=== PATIENT | female | born 1950 ===

== ENCOUNTER 2017-11-21 13:24 | Emergency (ER) | payer MEDICARE ==
[2017-11-21 13:41] VITALS: BP 178/86
--- NOTE | 2017-11-21 13:43 | UC ---
Throat Pain/Nasal Hima HPI - HPI Summary HPI Summary: 67 y/o female presents to the urgent care c/o sore throat since yesterday. Pt was with her grand children over the weekend and one of them Dx w/ strep. She wants to make sure she doesn't have strep. Pain w/ swallowing is 8/10 associated w/ mild nasal congestion and clear nasal discharge. She has not taking anything to alleviate symptoms. Pt denies fever, cough, ROMERO, body aches , SOB, chest pain, dizziness, abdominal pain,N/V/D. Pt states she took her BP medication this morning. - History of Current Complaint Stated Complaint: SORE THROAT Time Seen by Provider: 11/21/17 13:38 Hx Obtained From: Patient Onset/Duration: Gradual Onset, Lasting Days - 1 day, Still Present, Worse Since - today Severity: Mild Cough: None Associated Signs & Symptoms: Positive: Dysphagia - Epiglottits Risk Factors Epiglottis Risk Factors: Negative - Allergies/Home Medications Allergies/Adverse Reactions: Allergies Allergy/AdvReac Type Severity Reaction Status Date / Time aspirin Allergy Swelling Verified 11/21/17 13:41 Of Face,Lips,& Throat ibuprofen Allergy Swelling Verified 11/21/17 13:41 Of Face,Lips,& Throat Home Medications: Home Medications Acetaminophen 650 mg PO Q6H PRN 11/21/17 [History Confirmed 11/21/17] Lisinopril TAB* [Prinivil TAB 10 MG*] 20 mg PO DAILY 11/21/17 [History Confirmed 11/21/17] PMH/Surg Hx/FS Hx/Imm Hx Previously Healthy: Yes Other Endocrine History: GOUT Cardiovascular History: Hypertension - Family History Known Family History: Positive: Hypertension - Social History Occupation: Retired Lives: With Family Review of Systems Constitutional: Negative Skin: Negative Eyes: Negative ENT: Sore Throat, Nasal Discharge - clear discharge Respiratory: Negative Cardiovascular: Negative Gastrointestinal: Negative Genitourinary: Negative Motor: Negative Neurovascular: Negative Musculoskeletal: Negative Neurological: Negative Psychological: Negative Is Patient Immunocompromised?: No All Other Systems Reviewed And Are Negative: Yes Physical Exam - Summary Physical Exam Summary: VITAL SIGNS: Reviewed. GENERAL: Patient is a well developed and nourished female who is sitting comfortable in the examining table. Patient is not in any acute respiratory distress. HEAD AND FACE: No signs of trauma. No ecchymosis, hematomas or skull depressions. No sinus tenderness. EYES: PERRLA, EOMI x 2, No injected conjunctiva, no nystagmus. No photophobia. EARS: Hearing grossly intact. Ear canals and tympanic membranes are within normal limits. MOUTH: Positive pharynx with erythema, no exudates, mild palatal petechiae. B/L tonsillar enlargement with no exudate. Uvula in midline. NECK: Supple, trachea is midline, Positive anterior cervical lymphadenopathy, no JVD, no carotid bruit, no c-spine tenderness, neck with full ROM. No meningeal signs, no Kernig's or brudzinskis signs. CHEST: Symmetric, no tenderness at palpation LUNGS: Clear to auscultation bilaterally. No wheezing or crackles. CVS: Regular rate and rhythm, S1 and S2 present, no murmurs or gallops appreciated. ABDOMEN: Soft, non-tender. No signs of distention. No rebound no guarding, and no masses palpated. Bowel sounds are normal. EXTREMITIES: FROM in all major joints, no edema, no cyanosis or clubbing. NEURO: Alert and oriented x 3. No acute neurological deficits. Speech is normal and follows commands. SKIN: Dry and warm Triage Information Reviewed: Yes Throat Pain/Nasal Course/Dx - Course Course Of Treatment: 67 y/o female presents to the urgent care c/o sore throat since yesterday. Pt was with her grand children over the weekend and one of them Dx w/ strep. She wants to make sure she doesn't have strep. Pain w/ swallowing is 8/10 associated w/ mild nasal congestion and clear nasal discharge. She has not taking anything to alleviate symptoms. Pt denies fever , cough, ROMERO, body aches, SOB, chest pain, dizziness, abdominal pain,N/V/D. Pt states she took her BP medication this morning.Hx obtained. Pt w/ pharyngitis on examination. Rapid strep ordered, result: negative. Viral pharyngitis.Pt Rx ibuprofen PO to alleviates symptoms of pain and swelling. Advised on hand washing to avoid spreading. Pt advised to rest, eat well and avoid strenuous exercise. If symptoms do not improve or worsen advised to return to the urgent care or f/u with her PCP for further evaluation and treatment. Pt's BP is elevated today advised to decrease salt in diet, monitor BP and f/u with PCP for further management. Pt understood and agreed - Differential Dx/Diagnosis Differential Diagnosis/HQI/PQRI: Influenza, Mononucleosis, Pharyngitis, Sinusitis, Tonsillitis, URI Provider Diagnoses: 1- Viral pharyngitis. 2- Uncontrolled HTN Discharge - Sign-Out/Discharge Documenting (check all that apply): Discharge/Admit/Transfer - discharge home - Discharge Plan Condition: Stable Disposition: HOME Patient Education Materials: Pharyngitis (ED), Low-Sodium Diet (ED) Referrals: Garrett Rosas MD [Primary Care Provider] - 3 Days Additional Instructions: 1-Please take Tylenol 500mg PO q6-8hrs prn as instructed after meals to alleviate pain and swelling. Increase fluid intake, eat well, rest and avoid strenuous exercise 2-Your BP is elevated today. please decrease salt in your diet, monitor BP and if it continues to be elevated please f/u with your PCP for further management 3-If symptoms do not improve or worsen please return to the urgent care or f/u with your PCP for further evaluation and treatment. - Billing Disposition and Condition Condition: STABLE Disposition: HOME
== END 2017-11-21 14:09 | disposition home or self-care (01) ==
LOC: UCEAST 13:24
DX: J02.8 Acute pharyngitis due to other specified organisms (principal); I10 Essential (primary) hypertension; M10.9 Gout, unspecified; Z88.6 Allergy status to analgesic agent
CPT/HCPCS: 87651; 99211; G0463